=== PATIENT | female | born 1945 | race Caucasian/White ===

== ENCOUNTER 2018-08-17 21:49 | Emergency (ER) | payer OTHER ==
[2018-08-17 22:12] VITALS: BP 110/67; PULSE 93; TEMP 98.7; BMI 27.4
[2018-08-17] MEDS ORDERED: ALBUTEROL SO4 2.5/IPRATROPIUM 0.5 INH SOL 3 ML VIAL.NEB. NEB ONE ×2 (22:31→22:32)
--- NOTE | 2018-08-17 22:32 | PDOC ---
History of Present Illness - General Chief Complaint: Cold Symptoms Stated Complaint: FLU SYMPTOMS Time Seen by Provider: 08/17/18 22:23 History Source: Patient Exam Limitations: No Limitations - History of Present Illness Initial Comments: 08/17/18 22:37 Patient was seen and [facility] this morning and diagnosed with influenza A. Given Tamiflu and encouraged to continue fluids and antipyretics. Granddaughter who helps grandmother at home was concerned about patient's persistent cough and the lips blowing. Grandmother has started her Tamiflu this afternoon, but has not taken any antipyretics Timing/Duration: reports: getting worse, intermittent Severity: reports: moderate Associated Symptoms: reports: cough, facial pain, fever/chills, nasal congestion , nasal drainage Past History - Travel Traveled outside of the country in the last 30 days: No Close contact w/someone who was outside of country & ill: No - Past Medical History Home Medications: Ambulatory Orders Albuterol 0.083% Nebulizer Yue [Ventolin 0.083% Nebulizer Soln -] 1 neb NEB Q4H PRN #30 vial 08/17/18 - Suicide/Smoking/Psychosocial Hx Smoking History: Never smoked Have you smoked in the past 12 months: No Information on smoking cessation initiated: No Hx Alcohol Use: No Drug/Substance Use Hx: No Review of Systems - Review of Systems Able to Perform ROS?: Yes Is the patient limited Armenian proficient: Yes Constitutional: Yes: Symptoms Reported, See HPI, Chills, Fever, Loss of Appetite , Malaise HEENTM: Yes: Symptoms Reported, See HPI, Nose Congestion Respiratory: Yes: Symptoms reported, See HPI, Cough, Wheezing ABD/GI: Yes: Symptoms Reported, See HPI, Nausea Integumentary: Yes: Symptoms Reported, See HPI All Other Systems: Reviewed and Negative *Physical Exam - Vital Signs Last Vital Signs Temp Pulse Resp BP Pulse Ox 98.7 F 93 H 20 110/67 100 08/17/18 22:00 08/17/18 22:00 08/17/18 22:00 08/17/18 22:00 08/17/18 22:00 - Physical Exam General Appearance: Yes: Nourished, Appropriately Dressed, Apparent Distress, Mild Distress, Moderate Distress HEENT: positive: SALLY, Normal ENT Inspection, TMs Normal, Pharynx Normal, Nasal Congestion, Rhinorrhea Respiratory/Chest: positive: Chest Tender (with deep inspiration, pleuritic chest pain), Rhonchi (cor coarse inspiratory and expiratory breath sounds with provoked cough with deep inspiration.), Wheezing. negative: Lungs Clear Gastrointestinal/Abdominal: positive: Soft. negative: Tender Musculoskeletal: positive: Normal Inspection Extremity: positive: Normal Capillary Refill, Normal Inspection, Normal Range of Motion Integumentary: positive: Dry, Warm, Pale Neurologic: positive: wrapper layer II-XII NML intact, Fully Oriented, Alert, Normal Mood/ Affect, Normal Response, Motor Strength 5/5 Moderate Sedation - Procedure Monitoring Vital Signs: Procedure Monitoring Vital Signs Temperature 98.7 F 08/17/18 22:00 Pulse Rate 93 H 08/17/18 22:00 Respiratory Rate 20 08/17/18 22:00 Blood Pressure 110/67 08/17/18 22:00 O2 Sat by Pulse Oximetry (%) 100 08/17/18 22:00 Progress Note - Progress Note Progress Note: Influenza, already diagnosed. Will add albuterol nebulizers to help clear congestive breath sounds and mild wheezing. Admission will follow-up with PMD this week *DC/Admit/Observation/Transfer Diagnosis at time of Disposition: Influenza - Discharge Dispostion Disposition: HOME Condition at time of disposition: Stable Decision to Admit order: No - Referrals Referrals: Mariaelena Davis [Primary Care Provider] - - Patient Instructions Printed Discharge Instructions: DI for Viral Upper Respiratory Infection -- Adult Additional Instructions: Rest, drink lots of fluids: Teas, water, soups, Pedialyte Saltwater gargles Steamy showers/seem to face break up mucus Old-fashioned treatments help! Avoid contact with others until fevers and cough resolved as this is very contagious Lots of handwashing and good hygiene Continue [id number] medications for symptomatic relief Tylenol or Motrin for fever and pain Take all of Tamiflu as directed: 1 tab every 12 hours for 5 days May use albuterol nebulizers every 4-6 hours for cough and shortness of breath Followup with private physician in one to 2 days as needed or if worsening Return to emergency department for worsened symptoms, fevers, dehydration Influenza takes between 5 and 7 days for resolution To not participate in any activity, work, or school until fevers and cough are gone for at least one day - Post Discharge Activity
[2018-08-17] MEDS ORDERED: ACETAMINOPHEN 500 MG TABLET (FP) PO ONE (22:37)
[2018-08-17] MEDS ORDERED: ACETAMINOPHEN 500 MG TABLET (FP) ONE (22:39)
== END 2018-08-17 22:46 | disposition home or self-care (01) ==
LOC: JERFT 21:49
PROC: 3E0F7GC Introduction of Other Therapeutic Substance into Respiratory Tract, Via Natural or Artificial Opening (ICD-10-PCS; principal; 2018-08-17)
DX: J09.X2 Influenza due to identified novel influenza A virus with other respiratory manifestations (principal)
CPT/HCPCS: 94640; 99281-25

== ENCOUNTER 2023-12-06 16:12 | Emergency (ER) | payer OTHER ==
[2023-12-06 16:29] VITALS: BP 186/52; PULSE 78; RESP 17; TEMP 98.2; BMI 27.8
[2023-12-06] MEDS ORDERED: FLUORESCEIN NA 1 EA STRIP ONE (17:00)
[2023-12-06] MEDS: TETRACAINE 0.5% HCL 0.6ML DROPPER.BOTTLE OS ONE (17:01)
[2023-12-06] MEDS: FLUORESCEIN NA 1 EA STRIP OS ONE (17:01)
[2023-12-06] MEDS ORDERED: TETRACAINE 0.5% OPHTH SOLN 2 ML BOTTLE ONE (17:01)
== END 2023-12-06 17:26 | disposition home or self-care (01) ==
LOC: JERFT 16:12
DX: S05.02XA Injury of conjunctiva and corneal abrasion without foreign body, left eye, initial encounter (principal); H57.12 Ocular pain, left eye; X58.XXXA Exposure to other specified factors, initial encounter
CPT/HCPCS: 99283-25